=== PATIENT | male | born 1950 | race Caucasian/White ===

== ENCOUNTER 2017-08-23 07:01 | Inpatient (IN) | payer MEDICARE ==
[2017-08-20 14:21] LABS: BASOPHILS % 0.3 % (0.0-1.0); EOSINOPHILS % 0.3 % (0.0-6.0); HEMOGLOBIN 10.6 g/dL (14.0-18.0); LYMPHOCYTES # (AUTO) 1.6 (1.0-3.2); LYMPHOCYTES % 16.3 % (18.0-39.1); MEAN CORPUSCULAR HEMOGLOBIN 30.7 pg (28-32); MEAN CORPUSCULAR HGB CONC 33.1 g/dL (31-35); MEAN CORPUSCULAR VOLUME 92.8 fL (81-99); MONOCYTES # (AUTO) 0.5 (0.2-0.8); MONOCYTES % 5.1 % (4.4-11.3); NEUTROPHILS # (AUTO) 7.4 (2.1-6.9); NEUTROPHILS % 75.9 % (38.7-80.0); PLATELET COUNT 194 x10e3/uL (140-360); RED BLOOD COUNT 3.45 x10e6/uL (4.3-5.7); RED CELL DISTRIBUTION WIDTH 14.9 % (11.7-14.4)
[2017-08-20 14:37] LABS: ANION GAP 17.7 mmol/L (8-16); CALCIUM 9.2 mg/dL (8.4-10.2); CREATININE, SERUM 2.21 mg/dL (0.72-1.25); POTASSIUM 4.7 mmol/L (3.5-5.1)
--- NOTE | 2017-08-20 15:51 | Diagnostic Imaging Report ---
PROCEDURE: Frontal and lateral views of the chest. COMPARISON: None. INDICATIONS: PRE-OPERATIVE CHEST X-RAY FOR LT. KNEE SURGERY. FINDINGS: Lines/tubes: None. Lungs: A lungs are well-inflated. Patchy opacities in the left lower lung/retrocardiac region, likely reflect atelectasis. No consolidation or pulmonary edema. Pleura: There is no pleural effusion or pneumothorax. Heart and mediastinum: The heart and the mediastinum are normal. Bones: No acute bony abnormality. IMPRESSION: 1. left basal atelectatic changes. No consolidation or effusion. Elmo Paz M.D. Dictated by: Elmo Paz M.D. on 08/20/2017 at 15:59 Electronically approved by: Elmo Paz M.D. on 08/20/2017 at 15:59
[2017-08-20 16:16] LABS: LYMPHOCYTES % (MANUAL) 20 % (19-48); MONOCYTES % (MANUAL) 3 % (3.4-9.0); MYELOCYTES % (MANUAL) 1 % (0-0); NEUTROPHILS % (MANUAL) 76 % (40-74); RBC MORPHOLOGY COMMENT NORMAL
[2017-08-20 16:17] LABS: PLATELET ESTIMATE ADEQUATE
[~2017-08-23] VITALS: Ht 175.3 cm; Wt 80.9 kg
[~2017-08-23 07:01] MED LIST: ALLOPURINOL300 MG PO; ASPIRIN325 MG PO; BUMETANIDE1 MG PO; BYSTOLIC10 MG PO; CELEBREX100 MG PO; CLINDAMYCIN HC150 MG PO; COLCRYS0.6 MG PO; DORZOLAMIDE HCL10 ML OP; DORZOLAMIDE-TIM10 ML OP; FOLIC ACID1 MG PO; FUROSEMIDE40 MG PO; HYDRALAZINE HCL25 MG PO; HYDROCODON-ACE1 EA12 PO; LEVOTHYROXINE; LEVOTHYROXINE50 MCG PO; LISINOPRIL2.5 MG PO; METHOTREXATE2.5 MG PO; PREDNISONE10 MG PO; ROPIVACAINE 246.25 MG, EPINEPHRINE HCL 1:1000 0.5 MG, CLONIDINE HCL 0.08 MG, KETOROLAC ... INJ ONE; TRIAMCINOLONE A15 G1
[2017-08-23] MEDS ORDERED: CELECOXIB 200 MG CAP ONE (07:08)
[2017-08-23] MEDS ORDERED: DEXAMETHASONE SOD PHOS 10 MG/1 ML VIAL ONE (07:08)
[2017-08-23] MEDS ORDERED: GABAPENTIN 300 MG CAP ONE (07:08)
[2017-08-23] MEDS: VANCOMYCIN 1GM/NS 250 ML 250 ML ONE ×2 (07:26→09:49)
[2017-08-23 07:40] LABS: ANION GAP 12.6 mmol/L (8-16); CALCIUM 9.1 mg/dL (8.4-10.2); CREATININE, SERUM 2.13 mg/dL (0.72-1.25); POTASSIUM 4.6 mmol/L (3.5-5.1)
[2017-08-23] MEDS ORDERED: HYDRALAZINE HCL 20 MG/ML VIAL ONE (07:48)
[2017-08-23] MEDS ORDERED: TRANEXAMIC ACID 1,000 MG/10 ML ML ONE (09:07)
[2017-08-23] MEDS ORDERED: MUPIROCIN 2% OINT 22 GM TUBE ONE (09:07)
[2017-08-23] MEDS ORDERED: BACITRACIN 50,000 UNIT VIAL ONE (09:08)
[2017-08-23] MEDS ORDERED: HYDROMORPHONE 2MG/ML INJ ONE (09:22)
[2017-08-23] MEDS ORDERED: HYDROCODONE/APAP 7.5MG-325MG 1 EA TAB PO PRN (12:30)
[2017-08-23] MEDS ORDERED: DIPHENHYDRAMINE HCL INJ 50 MG/ML VIAL IM/IV PRN (12:30)
[2017-08-23] MEDS ORDERED: HYDROCODONE/APAP 5MG-325MG TAB PO PRN (12:30)
[2017-08-23] MEDS ORDERED: DOCUSATE SODIUM 100 MG CAP PO PRN (12:30)
[2017-08-23] MEDS ORDERED: PROMETHAZINE HCL (IM) 25 MG/ML VIAL INJ PRN (12:30)
[2017-08-23] MEDS ORDERED: KETOROLAC TROMETHAMINE 30 MG/ML VIAL IV PRN (12:30)
[2017-08-23] MEDS ORDERED: ACETAMINOPHEN 650 MG SUPP PR PRN (12:30)
[2017-08-23] MEDS ORDERED: ZOLPIDEM TARTRATE 5 MG TAB PO PRN (12:30)
[2017-08-23] MEDS ORDERED: ONDANSETRON HCL INJ 2 MG/ML VIAL IV PRN (12:30)
--- NOTE | 2017-08-23 13:39 | Diagnostic Imaging Report ---
PROCEDURE:X-RAY LEFT KNEE, ONE OR TWO VIEWS COMPARISON:05/25/17 INDICATIONS:POST OP LEFT KNEE SURGERY FINDINGS:Status post total left knee arthroplasty with intact prosthesis in adequate anatomic alignment. There is mildpost-operative suprapatellar effusion, soft tissue swelling and gas. Multiple surgical skin luis eduardo. No acute fracture-dislocation. No definite intra-osseous lesion. Vascular calcification. CONCLUSION:Status post total left knee arthroplasty with intact prosthesis in adequate anatomic alignment. Dictated by: Marcos Aly M.D. on 08/23/2017 at 13:48 Electronically approved by: Marcos lAy M.D. on 08/23/2017 at 13:48
[2017-08-23] MEDS ORDERED: CELECOXIB 100 MG CAP PO SCH (17:00)
[2017-08-23] MEDS: ASPIRIN 325 MG TAB PO SCH (17:00)
[2017-08-23] MEDS: ACETAMINOPHEN 1000 MG/100 ML IV SCH (18:00)
[2017-08-23] MEDS ORDERED: SEVOFLURANE INHAL SOLN 250 ML PEN BTL ONE (18:22)
[2017-08-23] MEDS ORDERED: DEXAMETHASONE SOD PHOS INJ 4 MG/ML VIAL ONE (18:22)
[2017-08-23] MEDS ORDERED: ONDANSETRON HCL INJ 2 MG/ML VIAL ONE (18:22)
[2017-08-23] MEDS ORDERED: LIDOCAINE HCL 2% LOCAL INJ 5 ML SDV VIAL INJ ONE (18:22)
[2017-08-23] MEDS ORDERED: PROPOFOL IV EMULSION 10 MG/ML 20 ML VIAL ONE (18:22)
[2017-08-23 18:30] VITALS: BP 126/68
[2017-08-23] MEDS ORDERED: FENTANYL CITRATE/PF 100MCG/2 ML INJ ONE (19:12)
[2017-08-23] MEDS ORDERED: MIDAZOLAM HCL 2 MG/2 ML VIAL ONE (19:12)
[2017-08-23 20:00] VITALS: BP 120/71
[2017-08-23 21:11] VITALS: BP 126/68
[2017-08-23 21:25] VITALS: BP 120/71
[2017-08-23] MEDS: SODIUM CHLORIDE 0.9% 1000ML 1,000 ML IV SCH (22:30)
[2017-08-23] MEDS: VANCOMYCIN 1GM/NS 250 ML 250 ML IV SCH (22:30)
[2017-08-24] VITALS: BP 125/56
[2017-08-24] MEDS: ACETAMINOPHEN 1000 MG/100 ML IV SCH ×3 (00:30→12:00)
[2017-08-24 04:00] VITALS: BP 143/69
[2017-08-24 07:25] LABS: HEMATOCRIT 24.5 % (38.2-49.6); HEMOGLOBIN 7.9 g/dL (14.0-18.0)
[2017-08-24] MEDS: ASPIRIN 325 MG TAB PO SCH ×2 (09:00→17:00)
[2017-08-24] MEDS ORDERED: ASPIRIN325 MG PO (09:03)
[2017-08-24] MEDS: SODIUM CHLORIDE 0.9% 1000ML 1,000 ML IV SCH (09:30)
[2017-08-24 09:56] VITALS: BP 142/64
[2017-08-24] MEDS: VANCOMYCIN 1GM/NS 250 ML 250 ML IV SCH (11:00)
[2017-08-24] MEDS ORDERED: ACETAMINOPHEN 1000 MG/100 ML IV PRN (12:30)
[2017-08-24 14:37] VITALS: BP 136/60
[2017-08-24 17:55] VITALS: BP 113/61
[2017-08-24 20:00] VITALS: BP 139/73
[2017-08-25] VITALS: BP 138/65
[2017-08-25] MEDS ORDERED: SODIUM CHLORIDE 0.9% 250ML 250 ML ONE (02:54)
[2017-08-25 04:00] VITALS: BP 135/73
[2017-08-25 04:40] LABS: HEMATOCRIT 23.9 % (38.2-49.6)
[2017-08-25 04:44] LABS: HEMOGLOBIN 7.8 g/dL (14.0-18.0)
[2017-08-25] MEDS ORDERED: SODIUM CHLORIDE 0.9% 250ML 250 ML IV ONE (04:45)
[2017-08-25 07:30] VITALS: BP 135/73
[2017-08-25] MEDS: ASPIRIN 325 MG TAB PO SCH (07:56)
[2017-08-25 08:02] VITALS: BP 157/81
[2017-08-25 11:34] VITALS: BP 126/70
[2017-08-25] MEDS ORDERED: DOXYCYCLINE HY100 MG PO (13:02)
[2017-08-25 13:35] LABS: BASOPHILS % 0.1 % (0.0-1.0); EOSINOPHILS # (AUTO) 0.1 (0.0-0.4); EOSINOPHILS % 1.1 % (0.0-6.0); HEMATOCRIT 27.6 % (38.2-49.6); HEMOGLOBIN 9.1 g/dL (14.0-18.0); LYMPHOCYTES % 23.8 % (18.0-39.1); MEAN CORPUSCULAR HEMOGLOBIN 30.6 pg (28-32); MEAN CORPUSCULAR VOLUME 92.9 fL (81-99); MONOCYTES # (AUTO) 0.9 (0.2-0.8); MONOCYTES % 10.4 % (4.4-11.3); NEUTROPHILS # (AUTO) 5.4 (2.1-6.9); NEUTROPHILS % 63.5 % (38.7-80.0); PLATELET COUNT 178 x10e3/uL (140-360); RED BLOOD COUNT 2.97 x10e6/uL (4.3-5.7); RED CELL DISTRIBUTION WIDTH 15.6 % (11.7-14.4)
[2017-08-25 13:38] LABS: CALCIUM 8.8 mg/dL (8.4-10.2); CREATININE, SERUM 2.43 mg/dL (0.72-1.25)
[2017-08-25 16:31] VITALS: BP 137/78
--- NOTE | 2017-08-25 18:33 | Operative Report ---
DATE OF PROCEDURE: August 23, 2017 [employer]: Josias Powers PA-C The patient was brought to the operating room for induction of anesthesia. Throughout this case, my PA's assistance was necessary for retraction of soft tissue and positioning of the extremity. This allows for efficient and technically successful execution of the operation and is considered medically necessary. 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 PROCEDURES: 1. Left knee irrigation and debridement. 2. Total synovectomy. 3. Removal of temporary antibiotic prosthesis. 4. Second stage revision of total knee arthroplasty. 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 He has had his prosthesis removed and placement of an antibiotic spacer. Repeat cultures that the aspirate have been negative after a 6 week course of antibiotics. We plan on a 2nd stage revision. The risks and benefits and success rates have all been explained to the patient. He states he understands and wishes to proceed. DESCRIPTION OF PROCEDURE: The patient was brought to the operating room and placed under general anesthetic. He received antibiotics and tranexamic in the holding area. His left lower extremity was prepped and draped in a sterile manner. A preoperative time out was performed. The extremity was exsanguinated and a proximal tourniquet was inflated to 300 mmHg. The previous incision was opened. Slightly blunt blood-tinged synovial fluid was encountered. Cultures were sent. A total synovectomy was performed to improve visualization. Soft tissue releases were performed to bring the knee up into flexion with the patella everted. The previously inserted antibiotic-impregnated prosthesis was carefully removed. This included the femur, tibia and patella. All bone surfaces were gently debrided and cleaned of any fibrous membrane. A [employer] 360 revision system was used. Initial attention was directed towards the tibia. The tibial canal was prepared. This had a rather large 18 mm canal. The tibial baseplate was a 79 mm stem. The central fen punch was impacted. An additional 2 mm cut had been made to freshen up the bone surfaces. Distal femur was templated at 67.5 mm. The canal was also repaired. This had a 19 mm canal. Trial reductions were performed. I elected to use 5 mm medial and lateral augments. A 16 mm posterior stabilized insert provided appropriate soft tissue balancing in flexion and extension. The patella was resurfaced with a size 34 mm patellar button. Patellar tracking was noted to be concentric. The trial implants were then all removed. The knee was thoroughly irrigated with a Pulsavac. A 100 mL premixed pericapsular injection was placed into the soft tissue. The components were cemented into place using two separate mixes of high-viscosity Simplex cement. This was pre-loaded with tobramycin but an additional gram of vancomycin was placed into each mix. The components were cemented into place. Care was taken to remove extravasated cement. The 16 mm tibial insert was seated. The knee was further irrigated and then the arthrotomy was carefully closed with interrupted number 1 Ethibond. The knee was put through flexion and extension after each suture to ensure a secure closure. The skin was closed with subcuticular Vicryl and luis eduardo. A sterile wound vacuum was placed. The patient was extubated and transported to the recovery room in stable condition. Estimated blood loss was approximately 100 mL. All needle and sponge counts were correct. Job#: [id number]
== END 2017-08-25 17:43 | disposition home health service (06) | DRG 467 ==
LOC: OR 07:01 → MED/SURG 12:22
PROVIDERS: ADMIT Specialist; ATTEND Specialist
PROC: 0SRD0J9 Replacement of Left Knee Joint with Synthetic Substitute, Cemented, Open Approach (ICD-10-PCS; 2017-08-23)
PROC: 0SPD0JZ Removal of Synthetic Substitute from Left Knee Joint, Open Approach (ICD-10-PCS; 2017-08-23)
PROC: 0SBD0ZZ Excision of Left Knee Joint, Open Approach (ICD-10-PCS; principal; 2017-08-23 09:52)
PROC: 30233N1 Transfusion of Nonautologous Red Blood Cells into Peripheral Vein, Percutaneous Approach (ICD-10-PCS; 2017-08-25)
DX: T84.54XA Infection and inflammatory reaction due to internal left knee prosthesis, initial encounter (principal); N17.9 Acute kidney failure, unspecified; D62 Acute posthemorrhagic anemia; I10 Essential (primary) hypertension; B96.89 Other specified bacterial agents as the cause of diseases classified elsewhere; M10.9 Gout, unspecified
CPT/HCPCS: 36415; 36430; 71020; 80048; 85014; 85018; 85025; 86850; 86900; 86920; 87071; 87075; 87205; J0171; J0360; J1100; J1885; J2001; J2250; J2405; J2795; J3370; J7030; J7050; P9016

== ENCOUNTER → 2017-09-02 | Outpatient (CLI) | payer MEDICARE ==
[~2017-09-02] MED LIST changes: +DOXYCYCLINE HY100 MG PO; -ROPIVACAINE 246.25 MG, EPINEPHRINE HCL 1:1000 0.5 MG, CLONIDINE HCL 0.08 MG, KETOROLAC ... INJ ONE
--- NOTE | 2017-09-02 15:15 | Diagnostic Imaging Report ---
PROCEDURE:US RETROPERITONEAL ( KIDNEY ). COMPARISON:None. INDICATIONS:Chronic Kidney Disease TECHNIQUE:Ultrasound examination was performed of the kidneys and bladder. FINDINGS: RIGHT KIDNEY:12.3 cm in length. Cyst in the upper pole measures 1.5 x 1.2 x 1.2 cm. Increased echogenicity of the cortex. The cortex measures 1.6 cm in thickness. Cortical scarring. LEFT KIDNEY:12.2 cm in length. Increased echogenicity of the cortex diffusely. Cortical scarring. The cortex measures approximately 1.5 cm in thickness. A cyst in the upper pole measures 4.4 x 4.5 x 5.9 cm. 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 BLADDER:Unremarkable. OTHER:The prostate is normal size measuring 2.0 x 2.2 x 2.9 cm. CONCLUSION: INCREASED ECHOGENICITY OF THE RENAL CORTEX BILATERALLY CONSISTENT WITH MEDICAL RENAL DISEASE. Brandon MOLINA M.D. DICTATED BY: Brandon MOLINA M.D. ON 09/02/2017 AT 15:24 ELECTRONICALLY APPROVED BY: Brandon MOLINA M.D. ON 09/02/2017 AT 15:24
== END ==
LOC: US 10:26
PROVIDERS: ATTEND Family Medicine
DX: N18.4 Chronic kidney disease, stage 4 (severe) (principal)
CPT/HCPCS: 76770

== ENCOUNTER 2018-01-18 06:06 | Inpatient (IN) | payer MEDICARE ==
[2018-01-18] VITALS (7 sets, daily range): BP systolic 116–150; BP diastolic 61–70
[~2018-01-18] VITALS: Ht 175.3 cm; Wt 90.5 kg
--- OUTSIDE RECORDS SUMMARY | 2018-01-18 06:10 | XMS REPORT ---
Author Author [facility] Address Unknown Phone Unavailable Care Team Providers Care Grid Molder Name Role Phone CHINMAY DIAZ Unavailable Unavailable EMMANUEL FLOYD Unavailable Unavailable TRISTAN MONTELONGO Unavailable Unavailable LORE SUTHERLAND Unavailable Unavailable Problems This patient has no known problems. Allergies, Adverse Reactions, Alerts This patient has no known allergies or adverse reactions. Medications This patient has no known medications. Results Test Description Test Time Test Comments Text Results Atomic Results Result Comments CULTURE, BLOOD 2017-01-24 19:47:00 Specimen: BloodCollected: 01/19/2017 13 :40 Status: Final Last Updated: 01/24/2017 19:44 Culture Result ( Final) (Final) No Growth After 5 Days CULTURE, ANAEROBE BLOOD 2017-01-24 19:47:00 Specimen: BloodCollected: 13:40 Status: Final Last Updated: 01/24/2017 19:44 Culture Result (Final) (Final) No Growth After 5 Days URINALYSIS WITH MICROSCOPIC 2017-01-23 19:56:00 Color (test code=UCOLR) Lt. Yellow Clarity (test code=UCLAR) CLEAR Glucose (test code=UGLUC) NEGATIVE NEGATIVE Bilirubin (test code=UBILI) NEGATIVE NEGATIVE Ketones (test code=UKET) NEGATIVE NEGATIVE Specific [place] (test code=USPGR) <=1.005 1.005-1.030 Blood (test code=UBLD) TRACE-INTACT NEGATIVE PH (test code=UPH) 5.5 4.5-8.0 Protein (test code=UPROT) NEGATIVE NEGATIVE Urobilinogen (test code=U UROB) 0.2 >0.2 Nitrite (test code=UNITR) NEGATIVE NEGATIVE Leukocyte Esterase (test code=ULEUK) NEGATIVE NEGATIVE WBC (test code=WBCUR) None Seen 0-5 RBC (test code=RBCUR) 0-5 0-5 Epithial Cells (test code=U EPI) 0-1 0-10 Bacteria (test code=UBACT) Trace None Seen,Trace CBC WITH AUTO [id number] 19:44:00* Test Item Value Reference Range Comments WBC (test code=WBC) 5.4 k/ul 4.8-10.8 RBC (test code=RBC) 4.06 Millions/ul 4.70-6.10 Hemoglobin (test code=HGB) 12.8 gm/dl 14.0-18.0 Hematocrit (test code=HCT) 38.1 % 42.0-50.0 MCV (test code=MCV) 94.0 fL 80.0-94.0 MCH (test code=MCH) 31.4 pg 27.0-31.0 MCHC (test code=MCHC) 33.4 gm/dl 33.0-37.0 RDW (test code=RDWVC) 13.3 % 11.5-14.5 Platelet (test code=PLT) 183 k/ul 130-400 MPV (test code=MPV) 8.0 fL 7.4-10.4 NE% (test code=NE) 60.7 % 42.0-75.0 LY% (test code=LY) 27.4 % 13.0-42.0 MO% (test code=MO) 9.8 % EO% (test code=EO) 1.6 % 1.0-3.0 BA% (test code=BA) 0.5 % 1.0-3.0 NRBC, Auto (test code=NRBC_AUTO) 0 /100WBC 0-0 AUTO [id number] 19:31:00* Test Item Value Reference Range Comments Glucose (test code=GLU) 110 mg/dl 75-110 BUN (test code=BUN) 10.0 mg/dl 6.0-17.0 Creatinine (test code=CREA) 0.8 mg/dl 0.4-1.2 Sodium (test code=NA) 144 mmol/l 137-145 Potassium (test code=K) 4.5 mmol/l 3.5-5.0 Chloride (test code=CL) 103 mmol/l 98-107 CO2 (test code=CO2) 26 mmol/l 22-30 Anion Gap (test code=GAP) 15 Calcium (test code=CALC) 9.5 mg/dl 8.4-10.2 T Protein (test code=TP) 7.7 gm/dl 5.1-8.7 Albumin (test code=ALB) 4.4 gm/dl 3.5-4.6 A/G Ratio (test code=AGRAT) 1.3 % 1.1-2.2 AST (SGOT) (test code=AST) 43 U/L 11-36 ALT (SGPT) (test code=ALT) 27 U/L 11-40 Alkaline Phos (test code=ALKP) 72 U/L 47-114 Total Bilirubin (test code=TBIL) 0.7 mg/dl 0.2-1.2 Globulin (test code=GLOBU) 3.3 gm/dl 2.3-3.5 Calcium, Corrected (test code=CALCCORR) 9.2 mg/dl 8.4-10.2 Various formulas exist for corrected serum calcium results, each yielding different values. This corrected result was based on the formula: Corrected Calcium=SerumCalcium + [0.8 * ( 4 - SerumAlbumin)] EGFR if (test code=EGFRAA) >60 mL/min/1.73m\S\2 EGFR if Non- (test code=EGFRNA) >60 mL/min/1.73m\S\2 Estimated Glomerular Filtration Rate (eGFR) Reference Intervals Decision Points for 18 years and older and average body mass: >=60 Does not exclude kidney disease. 30 - 59 Suggests moderate chronic kidney disease and indicates the need for further investigation including assessment of proteinuria and cardiovascular factors. < 30 Usually indicates a need for referral for assessment and management of chronic kidney failure. [id number] 06:28:00* Test Item Value Reference Range Comments Glucose (test code=GLU) 92 mg/dl 75-110 BUN (test code=BUN) 7.0 mg/dl 6.0-17.0 Creatinine (test code=CREA) 0.8 mg/dl 0.4-1.2 Sodium (test code=NA) 142 mmol/l 137-145 Potassium (test code=K) 3.7 mmol/l 3.5-5.0 Chloride (test code=CL) 108 mmol/l 98-107 CO2 (test code=CO2) 27 mmol/l 22-30 Calcium (test code=CALC) 8.9 mg/dl 8.4-10.2 EGFR if (test code=EGFRAA) >60 mL/min/1.73m\S\2 EGFR if Non- (test code=EGFRNA) >60 mL/min/1.73m\S\2 Estimated Glomerular Filtration Rate (eGFR) Reference Intervals Decision Points for 18 years and older and average body mass: >=60 Does not exclude kidney disease. 30 - 59 Suggests moderate chronic kidney disease and indicates the need for further investigation including assessment of proteinuria and cardiovascular factors. < 30 Usually indicates a need for referral for assessment and management of chronic kidney failure. CBC WITH AUTO [id number] 05:53:00* Test Item Value Reference Range Comments WBC (test code=WBC) 4.6 k/ul 4.8-10.8 RBC (test code=RBC) 3.51 Millions/ul 4.70-6.10 Hemoglobin (test code=HGB) 11.3 gm/dl 14.0-18.0 Hematocrit (test code=HCT) 33.4 % 42.0-50.0 MCV (test code=MCV) 95.0 fL 80.0-94.0 MCH (test code=MCH) 32.2 pg 27.0-31.0 MCHC (test code=MCHC) 33.9 gm/dl 33.0-37.0 RDW (test code=RDWVC) 13.4 % 11.5-14.5 Platelet (test code=PLT) 150 k/ul 130-400 MPV (test code=MPV) 8.6 fL 7.4-10.4 NE% (test code=NE) 53.8 % 42.0-75.0 LY% (test code=LY) 28.3 % 13.0-42.0 MO% (test code=MO) 14.2 % EO% (test code=EO) 3.3 % 1.0-3.0 BA% (test code=BA) 0.4 % 1.0-3.0 NRBC, Auto (test code=NRBC_AUTO) 0 /100WBC 0-0 B12, [id number] 15:14:00* Test Item Value Reference Range Comments B12 (test code=B12) 249 pg/ml 239-941 TSH (Ultra Sensitive)2017-01-20 15:14:00* Test Item Value Reference Range Comments TSH (test code=TSH) 1.98 mIU/L 0.47-4.68 [id number] 09:21:00* Test Item Value Reference Range Comments CKMB (test code=CKMB) 0.73 ng/ml 0.00-2.36 [id number] 09:21:00* Test Item Value Reference Range Comments CPK (test code=CPK) 85 U/L 30-135 TROPONIN-I [id number] 09:21:00* Test Item Value Reference Range Comments Troponin-I (test code=TROP) 0.012 ng/ml 0.000-0.034 The 99th Percentile URL is 0.034 ng/mL. The Joint Society of Cardiology/[place] [employer] (ESC/ACC) and the National Academy of Clinical Biochemistry Standards of Laboratory Practices (NACB) recommends that the diagnosis of AMI includes the presence of clinical history suggestive of Acute Coronary Syndrome (ACS) and a maximum concentration of cardiac troponin exceeding the 99th percentile of a normal reference population [upper reference limit (URL)] on at least one occasion during the first 24 hours after the clinical event. TROPONIN-I [id number] 07:59:00* Test Item Value Reference Range Comments Troponin-I (test code=TROP) 0.012 ng/ml 0.000-0.034 The 99th Percentile URL is 0.034 ng/mL. The Joint Society of Cardiology/[place] [employer] (ESC/ACC) and the National Academy of Clinical Biochemistry Standards of Laboratory Practices (NACB) recommends that the diagnosis of AMI includes the presence of clinical history suggestive of Acute Coronary Syndrome (ACS) and a maximum concentration of cardiac troponin exceeding the 99th percentile of a normal reference population [upper reference limit (URL)] on at least one occasion during the first 24 hours after the clinical event. [id number] 07:59:00* Test Item Value Reference Range Comments CKMB (test code=CKMB) 0.62 ng/ml 0.00-2.36 [id number] 07:03:00* Test Item Value Reference Range Comments Glucose (test code=GLU) 85 mg/dl 75-110 BUN (test code=BUN) 12.0 mg/dl 6.0-17.0 Creatinine (test code=CREA) 0.8 mg/dl 0.4-1.2 Sodium (test code=NA) 142 mmol/l 137-145 Potassium (test code=K) 3.7 mmol/l 3.5-5.0 Chloride (test code=CL) 107 mmol/l 98-107 CO2 (test code=CO2) 28 mmol/l 22-30 Calcium (test code=CALC) 8.9 mg/dl 8.4-10.2 EGFR if (test code=EGFRAA) >60 mL/min/1.73m\S\2 EGFR if Non- (test code=EGFRNA) >60 mL/min/1.73m\S\2 Estimated Glomerular Filtration Rate (eGFR) Reference Intervals Decision Points for 18 years and older and average body mass: >=60 Does not exclude kidney disease. 30 - 59 Suggests moderate chronic kidney disease and indicates the need for further investigation including assessment of proteinuria and cardiovascular factors. < 30 Usually indicates a need for referral for assessment and management of chronic kidney failure. CBC WITH AUTO [id number] 06:38:00* Test Item Value Reference Range Comments WBC (test code=WBC) 4.8 k/ul 4.8-10.8 RBC (test code=RBC) 3.72 Millions/ul 4.70-6.10 Hemoglobin (test code=HGB) 12.0 gm/dl 14.0-18.0 Hematocrit (test code=HCT) 35.5 % 42.0-50.0 MCV (test code=MCV) 95.5 fL 80.0-94.0 MCH (test code=MCH) 32.2 pg 27.0-31.0 MCHC (test code=MCHC) 33.7 gm/dl 33.0-37.0 RDW (test code=RDWVC) 13.4 % 11.5-14.5 Platelet (test code=PLT) 184 k/ul 130-400 MPV (test code=MPV) 8.5 fL 7.4-10.4 NE% (test code=NE) 48.8 % 42.0-75.0 LY% (test code=LY) 34.6 % 13.0-42.0 MO% (test code=MO) 13.5 % EO% (test code=EO) 2.5 % 1.0-3.0 BA% (test code=BA) 0.6 % 1.0-3.0 NRBC, Auto (test code=NRBC_AUTO) 0 /100WBC 0-0 [id number] 00:41:00* Test Item Value Reference Range Comments CKMB (test code=CKMB) 0.80 ng/ml 0.00-2.37 TROPONIN-I [id number] 00:41:00* Test Item Value Reference Range Comments Troponin-I (test code=TROP) 0.012 ng/ml 0.000-0.034 The 99th Percentile URL is 0.034 ng/mL. The Joint Society of Cardiology/[place] [employer] (ESC/ACC) and the National Academy of Clinical Biochemistry Standards of Laboratory Practices (NACB) recommends that the diagnosis of AMI includes the presence of clinical history suggestive of Acute Coronary Syndrome (ACS) and a maximum concentration of cardiac troponin exceeding the 99th percentile of a normal reference population [upper reference limit (URL)] on at least one occasion during the first 24 hours after the clinical event. TROPONIN-I [id number] 18:12:00* Test Item Value Reference Range Comments Troponin-I (test code=TROP) 0.012 ng/ml 0.000-0.034 The 99th Percentile URL is 0.034 ng/mL. The Joint Society of Cardiology/[place] [employer] (ESC/ACC) and the National Academy of Clinical Biochemistry Standards of Laboratory Practices (NACB) recommends that the diagnosis of AMI includes the presence of clinical history suggestive of Acute Coronary Syndrome (ACS) and a maximum concentration of cardiac troponin exceeding the 99th percentile of a normal reference population [upper reference limit (URL)] on at least one occasion during the first 24 hours after the clinical event. [id number] 18:12:00* Test Item Value Reference Range Comments CKMB (test code=CKMB) 0.68 ng/ml 0.00-2.37 DRUG SCREEN [id number] 15:26:00* Test Item Value Reference Range Comments PH (test code=UPH) 6.0 Specific [place] (test code=USPGR) 1.010 FT (test code=AMPHET) Negative (qualifier value) FT (test code=GREGORY) Negative (qualifier value) FT (test code=BENZO) Negative (qualifier value) FT (test code=MERCED) Negative (qualifier value) FT (test code=MTD) Negative (qualifier value) FT (test code=OPIAT) Negative (qualifier value) FT (test code=PCP) Negative (qualifier value) The following table provides an interpretive guide for the Drugs of Abuse ran on the [employer] 5.1 analyzer listed there in: Amphetamines < 1000 ng/ml=Negative Barbituates < 200 ng/ml=Negative Benzodiazapines < 200 ngml=Negative Cocaine < 300 ng/ml=Negative Methadone < 300 ng/ml= Negative Opiate < 300 ng/ml=Negative PCP < 25 ng /ml=Negative THC < 50 ng/ml=Negative Results equal to or greater than the above cut-off values=Presumptive Positive. Confirmation of Presumptive Positive results are available upon request. FT (test code=THC) Negative (qualifier value) URINALYSIS WITH [id number] 15:09:00* Test Item Value Reference Range Comments Color (test code=UCOLR) Lt. Yellow Clarity (test code=UCLAR) CLEAR Glucose (test code=UGLUC) NEGATIVE NEGATIVE Bilirubin (test code=UBILI) SMALL NEGATIVE Ketones (test code=UKET) NEGATIVE NEGATIVE Specific [place] (test code=USPGR) 1.010 1.005-1.030 Blood (test code=UBLD) NEGATIVE NEGATIVE PH (test code=UPH) 6.0 4.5-8.0 Protein (test code=UPROT) NEGATIVE NEGATIVE Urobilinogen (test code=U UROB) 0.2 >0.2 Nitrite (test code=UNITR) NEGATIVE NEGATIVE Leukocyte Esterase (test code=ULEUK) NEGATIVE NEGATIVE WBC (test code=WBCUR) None Seen 0-5 RBC (test code=RBCUR) None Seen 0-5 Epithial Cells (test code=U EPI) 0-3 0-10 Mucous (test code=UMUC) Trace None Seen Bacteria (test code=UBACT) None Seen None Seen,Trace TROPONIN-I [id number] 14:20:00* Test Item Value Reference Range Comments Troponin-I (test code=TROP) 0.012 ng/ml 0.000-0.034 The 99th Percentile URL is 0.034 ng/mL. The Joint Society of Cardiology/[place] [employer]iology (ESC/ACC) and the National Academy of Clinical Biochemistry Standards of Laboratory Practices (NACB) recommends that the diagnosis of AMI includes the presence of clinical history suggestive of Acute Coronary Syndrome (ACS) and a maximum concentration of cardiac troponin exceeding the 99th percentile of a normal reference population [upper reference limit (URL)] on at least one occasion during the first 24 hours after the clinical event. [id number] 14:20:00* Test Item Value Reference Range Comments CPK (test code=CPK) 74 U/L 30-135 [id number] 14:18:00* Test Item Value Reference Range Comments Glucose (test code=GLU) 101 mg/dl 75-110 BUN (test code=BUN) 14.0 mg/dl 6.0-17.0 Creatinine (test code=CREA) 0.9 mg/dl 0.4-1.2 Sodium (test code=NA) 146 mmol/l 137-145 Potassium (test code=K) 4.1 mmol/l 3.5-5.0 Chloride (test code=CL) 98 mmol/l 98-107 CO2 (test code=CO2) 29 mmol/l 22-30 Anion Gap (test code=GAP) 18 Calcium (test code=CALC) 8.3 mg/dl 8.4-10.2 T Protein (test code=TP) 7.3 gm/dl 5.1-8.7 Albumin (test code=ALB) 4.4 gm/dl 3.5-4.6 A/G Ratio (test code=AGRAT) 1.5 % 1.1-2.2 AST (SGOT) (test code=AST) 29 U/L 11-36 ALT (SGPT) (test code=ALT) 27 U/L 11-40 Alkaline Phos (test code=ALKP) 86 U/L 47-114 Total Bilirubin (test code=TBIL) 0.9 mg/dl 0.2-1.2 Globulin (test code=GLOBU) 2.9 gm/dl 2.3-3.5 Calcium, Corrected (test code=CALCCORR) 8.0 mg/dl 8.4-10.2 Various formulas exist for corrected serum calcium results, each yielding different values. This corrected result was based on the formula: Corrected Calcium=SerumCalcium + [0.8 * ( 4 - SerumAlbumin)] EGFR if (test code=EGFRAA) >60 mL/min/1.73m\S\2 EGFR if Non- (test code=EGFRNA) >60 mL/min/1.73m\S\2 Estimated Glomerular Filtration Rate (eGFR) Reference Intervals Decision Points for 18 years and older and average body mass: >=60 Does not exclude kidney disease. 30 - 59 Suggests moderate chronic kidney disease and indicates the need for further investigation including assessment of proteinuria and cardiovascular factors. < 30 Usually indicates a need for referral for assessment and management of chronic kidney failure. CBC WITH AUTO [id number] 13:46:00* Test Item Value Reference Range Comments WBC (test code=WBC) 6.5 k/ul 4.8-10.8 RBC (test code=RBC) 4.23 Millions/ul 4.70-6.10 Hemoglobin (test code=HGB) 13.5 gm/dl 14.0-18.0 Hematocrit (test code=HCT) 40.1 % 42.0-50.0 MCV (test code=MCV) 94.7 fL 80.0-94.0 MCH (test code=MCH) 32.0 pg 27.0-31.0 MCHC (test code=MCHC) 33.8 gm/dl 33.0-37.0 RDW (test code=RDWVC) 13.2 % 11.5-14.5 Platelet (test code=PLT) 219 k/ul 130-400 MPV (test code=MPV) 8.3 fL 7.4-10.4 NE% (test code=NE) 66.0 % 42.0-75.0 LY% (test code=LY) 24.2 % 13.0-42.0 MO% (test code=MO) 9.0 % EO% (test code=EO) 0.5 % 1.0-3.0 BA% (test code=BA) 0.3 % 1.0-3.0 NRBC, Auto (test code=NRBC_AUTO) 0 /100WBC 0-0 US RENAL RETROPERITONEAL COMP [place] [id number] Patient Name: ZEE CRUZ MR #: [id number] : 1950 Age/Sex: 67/M Req #: [id number] [facility] Physician: Ordered by: CHINMAY DIAZ MD Report #: [id number] Location: Room/Bed: Procedure: [id number] US/US RENAL RETROPERITONEAL COMP Exam Date: 09/02/17 Exam Time: 1100 REPORT STATUS: Signed PROCEDURE : US RETROPERITONEAL ( KIDNEY ). COMPARISON: None. INDICATIONS: Chronic Kidney Disease TECHNIQUE: Ultrasound examination was performed of the kidneys and bladder. FINDINGS: RIGHT KIDNEY: 12.3 cm in length. Cyst in the upper pole measures 1.5 x 1.2 x 1.2 cm. Increased echogenicity of the cortex. The cortex measures 1.6 cm in thickness. Cortical scarring. LEFT KIDNEY: 12.2 cm in length. Increased echogenicity of the cortex diffusely. Cortical scarring. The cortex measures approximately 1.5 cm in thickness. A cyst in the upper pole measures 4.4 x 4.5 x 5.9 cm. 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 BLADDER: Unremarkable. OTHER: The prostate is normal size measuring 2.0 x 2.2 x 2.9 cm. CONCLUSION: INCREASED ECHOGENICITY OF THE RENAL CORTEX BILATERALLY CONSISTENT WITH MEDICAL RENAL DISEASE. Brandon MOLINA M.D. DICTATED BY: Brandon MOLINA M.D. ON 09/02/2017 AT 15: 24 ELECTRONICALLY APPROVED BY: Brandon MOLINA M.D. ON 09/02/2017 AT 15:24 Dictated By: ANNIE MOLINA MD, MD 1524 Transcribed By: JOSE ALEJANDRO on 09/02 1524 COPY TO: CHINMAY DIAZ MD KNEE LEFT 1-2 VIEWS [place] [address] Patient Name: ZEE CRUZ MR #: [id number] : Age/Sex: 67/M Req #: [id number] Adm Physician: Ordered by: EMMANUEL FLOYD MD Report #: [id number] Location: OR Room/Bed: Procedure: [id number] DX/KNEE LEFT 1-2 VIEWS Exam Date: 08/23/17 Exam Time: 1230 REPORT STATUS: Signed PROCEDURE: X-RAY LEFT KNEE, ONE OR TWO VIEWS COMPARISON: INDICATIONS: POST OP LEFT KNEE SURGERY FINDINGS: Status post total left knee arthroplasty with intact prosthesis in adequate anatomic alignment. There is mildpost-operative suprapatellar effusion, soft tissue swelling and gas. Multiple surgical skin luis eduardo. No acute fracture-dislocation. No definite intra-osseous lesion. Vascular calcification. CONCLUSION: Status post total left knee arthroplasty with intact prosthesis in adequate anatomic alignment. Dictated by: Marcos Rivera M.D. on 08/23/2017 at 13:48 Electronically approved by: Marcos Rivera M.D. on 08/23/2017 at 13:48 Dictated By: MARCOS RIVERA MD 1348 Transcribed By: JOSE ALEJANDRO on 08/23/17 1348 COPY TO: EMMANUEL FLOYD MD CHEST 2 VIEWS [place] [address] Patient Name: ZEE CRUZ MR # : [id number] : 1950 Age/Sex: 67/M Req #: [id number] Adm Physician: Ordered by: STEFANO LANDRY MD Report #: [id number] Location: OR Room/Bed: Procedure: [id number] DX/ CHEST 2 VIEWS Exam Date: 08/20/17 Exam Time: 1428 REPORT STATUS: Signed PROCEDURE: Frontal and lateral views of the chest. COMPARISON: None. INDICATIONS: PRE-OPERATIVE CHEST X-RAY FOR LT. KNEE SURGERY. FINDINGS: Lines/tubes: None. Lungs: A lungs are well-inflated. Patchy opacities in the left lower lung/ retrocardiac region, likely reflect atelectasis. No consolidation or pulmonary edema. Pleura: There is no pleural effusion or pneumothorax. Heart and mediastinum: The heart and the mediastinum are normal. Bones: No acute bony abnormality. IMPRESSION: 1. left basal atelectatic changes. No consolidation or effusion. Elmo Padilla M.D. Dictated by: Elmo Padilla M.D. on 08/20/2017 at 15:59 Electronically approved by: Elmo Padilla M.D. on 08/20/2017 at 15:59 Dictated By: ELMO PADILLA MD 58 Transcribed By: JOSE ALEJANDRO on 08/20/171558 COPY TO: STEFANO LANDRY MD LEFT 1-2 VIEWS [place] [address] Patient Name: ZEE CRUZ MR #: [id number] : 1950 Age/Sex: 67/M Req #: [id number] Adm Physician: CHINMAY DIAZ MD Ordered by: EMMANUEL FLOYD MD Report #: [id number] Location: MED/SURG2 Room/ Bed: 209-1 Procedure: [id number] DX/KNEE LEFT 1-2 VIEWS Exam Date: 05/25/17 Exam Time: 1325 REPORT STATUS: Signed PROCEDURE: X-RAY LEFT KNEE, ONE OR TWO VIEWS COMPARISON: None. INDICATIONS: POST KNEE SURGERY FINDINGS: Status post total left knee arthroplasty with intact prosthesis in adequate anatomic alignment. There is post-operative suprapatellar effusion, soft tissue swelling and gas. Overlying surgical drain. Multiple surgical skin luis eduardo. No acute fracture-dislocation. No definite intra-osseous lesion. CONCLUSION: Status post total left knee arthroplasty with intact prosthesis in adequate anatomic alignment. Dictated by: Leonard Pritchard M.D. on 05/25/2017 at 14:33 Electronically approved by: Leonard Pritchard M.D. on at 14:33 Dictated By: LEONARD PRITCHARD MD 1433 Transcribed By: JOSE ALEJANDRO on 05/25/17 1433 COPY TO: EMMANUEL FLOYD MD CHEST XRAY LINE PLACEMENT [place] [address] Patient Name: ZEE CRUZ MR #: [id number] : 1949 Age/Sex: 67/M Req #: [id number] Adm Physician: CHINMAY DIAZ MD Ordered by: CHINMAY DIAZ MD Report #: [id number] Location: MED/SURG2 Room/Bed: 209- Procedure: [id number] DX/ CHEST XRAY LINE PLACEMENT Exam Date: 05/20/17 Exam Time: 1450 REPORT STATUS: Signed PROCEDURE: A single AP view of the chest. COMPARISON: [facility], CT, CT CHEST W, 03/30/2017, 20: 52. INDICATIONS: POST RIGHT SIDED PICC LINE PLACEMENT FINDINGS : See impression. IMPRESSION: 1. right-sided PICC line has distal tip projecting in the mid SVC. 2. Left basilar atelectatic changes. 3. Linear opacities in the left mid to lower lung likely reflects subsegmental atelectasis. 4. Enlarged cardiac silhouette. Pulmonary vasculature is normal. Elmo Padilla M.D. Dictated by : Elmo Padilla M.D. on 05/20/2017 at 15:36 Electronically approved by: Elmo Padilla M.D. on 05/20/2017 at 15:36 Dictated By: ELMO PADILLA MD 35 Transcribed By: JOSE ALEJANDRO on 05/20/17 153 COPY TO: CHINMAY DIAZ MD KNEE LEFT THREE VIEWS [place] [address] Patient Name: ZEE CRUZ MR #: [id number] : 1950 Age/Sex: 67/M Req #: [id number] [facility] Physician: Ordered by: DENISE MOORE MD Report #: [id number] Location: ER Room/Bed: Procedure: [id number] DX/KNEE LEFT THREE VIEWS Exam Date: 05/19/17 Exam Time: 0140 REPORT STATUS: Signed KNEE LEFT THREE VIEWS Comparison: None Clinical history: Swelling, septic arthritis Findings: Postsurgical changes status post total left knee arthroplasty. Moderate partially imaged suprapatellar joint effusion and soft tissue swelling. No bony destruction or hardware loosening seen. Vascular calcifications. Impression: Moderate suprapatellar joint effusion and soft tissue swelling. Postsurgical changes status post total left knee arthroplasty without hardware failure. Signed by: Dr Dariana Aquino MD on 05/19/2017 2:22 AM Dictated By: DARIANA AQUINO MD 1 Transcribed By: JODY on 05/19 COPY TO: DENISE MOORE MD CT ABDOMEN/PELVIS WO [place] [address] Patient Name: ZEE CRUZ MR #: [id number] : Age/Sex: 66/M Req #: [id number] [facility] Physician: CHINMAY DIAZ MD Ordered by: ENA VARGAS, KARY VARGAS Report #: [id number] Location: [facility] Room/Bed: [facility] Procedure: [id number] CT/CT ABDOMEN/PELVIS WO Exam Date: 04/06/17 Exam Time: 1230 REPORT STATUS: Signed PROCEDURE: CT ABDOMEN AND PELVIS WITHOUT CONTRAST TECHNIQUE: The abdomen and pelvis were scanned utilizing a multidetector helical scanner from the diaphragm to the lesser trochanter after the oral administration of water. No IV contrast was administered per physician's request. Coronal and sagittal multiplanar reformations were obtained. COMPARISON: [facility], US, US ABDOMEN COMPLETE, 04/01/2017, 12:10. INDICATIONS: HX OF KIDNEYS STONES AND CYST FINDINGS: ABSENCE OF INTRAVENOUS CONTRAST DECREASES SENSITIVITY FOR DETECTION OF FOCAL LESIONS AND VASCULAR PATHOLOGY. LOWER THORAX: Trace bilateral pleural effusions and associated bibasilar atelectasis. Mild cardiomegaly. Trace pericardial effusion. Atherosclerotic calcification of the aortic valve, coronary arteries and thoracic aorta. HEPATOBILIARY: No focal hepatic lesions. No biliary ductal dilatation. Gallbladder is unremarkable. SPLEEN: No splenomegaly. PANCREAS: No focal masses or ductal dilatation. ADRENALS: No adrenal nodules. KIDNEYS/ URETERS:2-3 mm nonobstructing calculus in the left inferior pole (series 3, image 90). Punctate, nonobstructing calculus in the superior left pole ( coronal image 46). No other renal or any ureteral or bladder calculi. No hydronephrosis or obstruction. 4.3 x 3.9 x 4.2 cm lobulated fluid density, mostly exophytic cystic lesion in the lateral interpolar region of the left kidney, corresponding to the cystic lesion noted on recent ultrasound. Punctate wall calcifications in the lateral posterior aspect of the cyst ( for example series 3, image 78 and coronal image 72). No other renal contour abnormalities. Mild bilateral perinephric stranding. PELVIC ORGANS/ BLADDER: Decompressed, with Soto catheter in place. Prostate is unremarkable. PERITONEUM / RETROPERITONEUM: No free air or fluid. LYMPH NODES: No lymphadenopathy. VESSELS: Atherosclerotic calcification of the abdominal aorta and iliac vessels. GI TRACT: No bowel dilation or evidence of obstruction. BONES AND SOFT TISSUES: No acute bony abnormalities. Generalized osteopenia. Mild generalized soft tissue edema. IMPRESSION: 1. 2-3 mm nonobstructing calculus in the left inferior pole. 2. Punctate nonobstructing calculus in the superior left pole. 3. No other renal or any ureteral or bladder calculi. No hydronephrosis or obstruction. 4. 4.3 cm lobulated, minimally complex cystic lesion in the lateral interpolar region of the left kidney. 5. Preliminary report provided by Dr. Padilla April 06, 2017 at 1343 hour Elmo Padilla M.D. Dictated by: Elmo Padilla M.D. on 04/07/2017 at 17:34 Electronically approved by: Elmo Padilla M.D. on 04/07/2017 at 17 :34 Dictated By: ELMO PADILLA MD 33 Transcribed By: JOSE ALEJANDRO on 04/07/171733 COPY TO: KARY SUTHERLAND US ABDOMEN COMPLETE [place] [address] Patient Name: ZEE CRUZ MR #: [id number] : 1950 Age/Sex: 66/M Req #: [id number] [facility] Physician: CHINMAY DIAZ MD Ordered by: BRENDA CARDONA MD Report #: [id number] Location: [facility] Room/Bed: [facility] Procedure: [id number] US/US ABDOMEN COMPLETE Exam Date: 04/01/17 Exam Time: 1210 REPORT STATUS: Signed PROCEDURE: ABDOMINAL ULTRASOUND COMPARISON: None. INDICATIONS: INCREASED ABDOMINAL GIRTH, HYPOALBUMINEMIA, LIVER CIRRHOSIS FINDINGS: Liver: 18 cm in length in the right midclavicular line. Normal hepatic parenchymal echogenicity. Normal hepatic parenchymal echogenicity. No focal mass. Main portal vein: 0.8 cm in caliber. Hepatopedal flow. Gallbladder: No wall thickening, pericholecystic fluid, or calculi Common Bile Duct: 0.3 cm in caliber. No echogenic filling defect. Sonographic Dawson's sign: Reported as negative. Right kidney: 12.3 cm in length. No solid mass, or hydronephrosis. Small renal cysts as seen on comparison CT 03/30/2017. Nonobstructing echogenic calculus in the lower pole. Increased renal cortical echogenicity. Left kidney: 11.5 cm in length. No solid mass, echogenic calculi, or hydronephrosis. Increased renal cortical echogenicity. Exophytic cyst as seen on comparison CT 03/30/2017. Spleen: 13.9 cm in length, mildly enlarged. Informed parenchymal echotexture. Pancreas: The visualized portions of the pancreas are normal. Inferior vena cava: Patent. Aorta: Non-aneurysmal. Ascites: None. Incidental trace bilateral pleural effusions. CONCLUSION: Hepatomegaly and splenomegaly without focal mass. Bilateral renal cysts. Nonobstructing right renal calculus. Increased renal cortical echogenicity suggestive of medical renal disease. Dictated by: Emmanuel Meza M.D. on 04/01/2017 at 14:07 Electronically approved by: Emmanuel Meza M.D. on 04/01/2017 at 14 :07 Dictated By: EMMANUEL MEZA MD 1407 Transcribed By: JOSE ALEJANDRO on 04/01/17 1407 COPY TO: BRENDA CARDONA MD KNEE LEFT THREE VIEWS [place] [address] Patient Name: ZEE CRUZ MR #: [id number] : 1949 Age/Sex: 66/M Req #: [id number] Adm Physician: CHINMAY DIAZ MD Ordered by: BRENDA CARDONA MD Report #: [id number] Location : MED/SURG3 Room/Bed: [facility] Procedure: [id number] DX/ KNEE LEFT THREE VIEWS Exam Date: 03/31/17 Exam Time : 1806 REPORT STATUS: Signed PROCEDURE: X-RAY LEFT KNEE, THREE OR MORE VIEWS COMPARISON: [facility], DX, KNEE LEFT 1-2 VIEWS , 11/09/2016, 9:57. INDICATIONS: KNEE SWELLING, STAPH INFECTION FINDINGS: The bones are well-mineralized. Left total knee replacement is identified, with intact hardware. No evidence of loosening or fracture. No acute displaced fracture or dislocation. No lytic or blastic lesions. Moderate suprapatellar effusion and soft tissue swelling anterior to the distal femur . CONCLUSION: Moderate suprapatellar effusion and soft tissue swelling anterior to distal femur. Status post total knee replacement with intact hardware. Elmo Padilla M.D. Dictated by: Elmo Padilla M.D. on 03/31/2017 at 19:44 Electronically approved by: Elmo Padilla M.D. on 03/31/2017 at 19:44 Dictated By: ELMO PADILLA MD 43 Transcribed By: JOSE ALEJANDRO on 03/31/171943 COPY TO: BRENDA CARDONA MD CT CHEST W [place] [address] Patient Name: ZEE CRUZ MR #: [id number] : 1950 Age/Sex: 66/M Req #: [id number] Adm Physician: Ordered by: DENISE MOORE MD Report #: [id number] Location: ER Room/Bed: Procedure: [id number] CT/CT CHEST W Exam Date: 03/30/17 Exam Time: 2100 REPORT STATUS: Signed EXAM: CT CHEST W DATE: 03/30 8:14 PM Time stamp on exam: 2053 hours INDICATION: History of blood clots, elevated d-dimer COMPARISON: None TECHNIQUE: Multidetector CT scanning of the chest was performed. Coronal and sagittal multiplanar reformations were obtained. PE protocol performed. IV Contrast: 100 cc Isovue- 370 CTDIvol has been reviewed. It is below the limits set by the Radiation Protocol Committee (RPC). FINDINGS: Exam limited by low inspiration and motion artifact. LUNGS AND AIRWAYS: The trachea and major bronchi are unremarkable. Mild septal thickening, vascular congestion and ground glass opacities. Bibasilar atelectasis. PLEURA: Trace layering bilateral pleural effusions. HEART, MEDIASTINUM, VESSELS: Mild cardiomegaly. Trace pericardial effusion. Atherosclerotic changes of the thoracic aorta without aneurysm. No mediastinal mass or lymphadenopathy. The main pulmonary artery is within normal size limits. No evidence of a pulmonary embolism to the segmental level. UPPER ABDOMEN: Partially visualized 4 cm left renal cyst. MUSCULOSKELETAL: Mild subcutaneous edema. Multiple old/healing bilateral rib fractures. IMPRESSION: 1. No evidence of a pulmonary embolism. 2. Findings of mild fluid overload. Signed by: Dr. Aleyda Andrade M.D. on 03/30/2017 9:36 PM Dictated By: ALEYDA ANDRADE MD 35 Transcribed By : JODY on 03/30/172135 COPY TO: DENISE MOORE MD CHEST 2 VIEWS [place] [address] Patient Name: ZEE CRUZ MR #: [id number] : 1950 Age/Sex: 66/M Req #: [id number] Adm Physician: Ordered by: LORNA RAMESH MD Report #: [id number] Location: ER Room/Bed: Procedure: [id number] DX/CHEST 2 VIEWS Exam Date: Exam Time: REPORT STATUS: Signed PROCEDURE: Frontal and lateral views of the chest. COMPARISON: Patients [facility], DX, CHEST SINGLE (PORTABLE), 01/25/2017, 20:26. INDICATIONS: COUGH, FEVER, STAFF INFECTION FINDINGS: Lines/tubes : None. Lungs: Patchy density in the left lung base may represent atelectasis versus developing pneumonia proper clinical setting. Patchy density in the right lower lobe may represent atelectasis; the morphology isn 't particularly suggestive of consolidation. Mild prominence of the pulmonary vasculature bilaterally. Pleura: There is no pneumothorax. Bilateral small pleural effusions. Heart and mediastinum: The cardiac silhouette is not enlarged. Bones: No acute bony abnormality. IMPRESSION: 1. Findings suggestive of bibasilar atelectasis, however, cannot exclude developing pneumonia/infection in the proper clinical setting. 2. Mild pulmonary venous congestion. Brandon Molina M.D. Dictated by: Brandon Molina M.D. on 03/30/2017 at 17: 45 Electronically approved by: Brandon Molina M.D. on 03/30/2017 at 17:45 Dictated By: ANNIE MOLINA MD, MD 44 Transcribed By: JOSE ALEJANDRO on 03/30 COPY TO: LORNA RAMESH MD
[2018-01-18] MEDS ORDERED: SODIUM CHLORIDE 0.9% 250ML 250 ML IV ONE (06:30)
[2018-01-18] MEDS ORDERED: CEFAZOLIN SOD 2 GM/D5W 50ML 50 ML IV ONE (06:32)
[2018-01-18] MEDS ORDERED: GABAPENTIN 300 MG CAP ONE (06:32)
[2018-01-18] MEDS ORDERED: CELECOXIB 200 MG CAP ONE (06:32)
[2018-01-18] MEDS ORDERED: DEXAMETHASONE SOD PHOS 10 MG/1 ML VIAL ONE (06:32)
[2018-01-18] MEDS ORDERED: MUPIROCIN 2% OINT 22 GM TUBE ONE (06:55)
[2018-01-18] MEDS ORDERED: TRANEXAMIC ACID 1,000 MG/10 ML ML ONE (06:55)
[2018-01-18] MEDS ORDERED: BACITRACIN 50,000 UNIT VIAL ONE (06:56)
[2018-01-18] MEDS ORDERED: ROPIVACAINE 246.25 MG, EPINEPHRINE HCL 1:1000 0.5 MG, CLONIDINE HCL 0.08 MG, KETOROLAC ... INJ ONE ×5 (08:00)
[2018-01-18] MEDS: SODIUM CHLORIDE 0.9% 1000ML 1,000 ML IV SCH ×2 (09:19→19:19)
[2018-01-18] MEDS ORDERED: DIPHENHYDRAMINE HCL INJ 50 MG/ML VIAL IM/IV PRN (09:30)
[2018-01-18] MEDS ORDERED: PROMETHAZINE HCL (IM) 25 MG/ML VIAL IM PRN (09:30)
[2018-01-18] MEDS ORDERED: ACETAMINOPHEN 650 MG SUPP PR PRN (09:30)
[2018-01-18] MEDS ORDERED: ONDANSETRON HCL INJ 2 MG/ML VIAL IV PRN (09:30)
[2018-01-18] MEDS ORDERED: HYDROCODONE/APAP 7.5MG-325MG 1 EA TAB PO PRN (09:30)
[2018-01-18] MEDS ORDERED: DOCUSATE SODIUM 100 MG CAP PO PRN (09:30)
[2018-01-18] MEDS ORDERED: HYDROCODONE/APAP 5MG-325MG TAB PO PRN (09:30)
--- NOTE | 2018-01-18 11:19 | Operative Report ---
DATE OF PROCEDURE: January 18, 2018 SANITARY AIDE: Josias Powers PA-C The patient was brought to the operating room for induction of anesthesia. Throughout this case, my PA's assistance was necessary for retraction of soft tissue and positioning of the extremity. This allows for efficient and technically successful execution of the operation and is considered medically necessary. PREOPERATIVE DIAGNOSIS: Mechanical complications in left total knee arthroplasty. POSTOPERATIVE DIAGNOSIS: Mechanical complications in left total knee arthroplasty. PROCEDURE: Left knee lateral retinacular release with vastus medialis obliquus advancement. INDICATIONS: The patient is a 67-year-old gentleman who has rheumatoid arthritis and is on chronic steroids. 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 He underwent a 2-stage revision and was doing just fine. However, he has developed patellar instability. His knee cap frankly dislocates with flexion. The findings and options have been discussed. I see no indication that there is any excessive external rotation of the components. We plan on wound exploration and repairs as indicated. He states he understands the plan of care and wishes to proceed. DESCRIPTION OF PROCEDURE: The patient was brought to the operating room. He received prophylactic antibiotics in the holding area. He was placed under general anesthetic, and his left lower extremity was prepped and draped in a sterile manner. A preoperative time out was performed. Extremity was exsanguinated, and a proximal tourniquet was inflated to 300 mmHg. A portion of the anterior incision was opened. There was no evidence that the medial repair had failed. There was some laxity of the tissue. A medial parapatellar arthrotomy was performed. Clear synovial fluid was noted to be in the joint. Previous inflammatory workup was normal. The Ethibond stitches from the previous surgery were carefully removed. A lateral retinacular release was carefully performed. The synovial lining was preserved. A temporary stitch was placed to determine the extent to which I could advance the vastus medialis obliquus. The knee was brought up into flexion. Once it was determined the appropriate tension to improve patellar tracking, a bioabsorbable Arthrex suture anchor was placed in the medial aspect of the patella. The FiberWire stitches were passed through the medial retinaculum. A triple-row repair of the extensor mechanism was then performed. The knee was put through flexion and extension on a number of occasions. There was no recurrent patellar subluxation or dislocation. The quadriceps repair was not under excessive tension. The wound was irrigated. The skin was closed with subcuticular Vicryl and luis eduardo. A sterile bandage and a knee immobilizer were applied. The patient was transported to the recovery room in stable condition. Job#: [id number]
[2018-01-18] MEDS: ACETAMINOPHEN 1000 MG/100 ML IV SCH ×2 (12:13→18:06)
[2018-01-18] MEDS ORDERED: CEFAZOLIN SOD 1 GM/NS 50ML 50 ML IV SCH (14:00)
[2018-01-18] MEDS: CEFAZOLIN SOD 1 GM VIAL IV SCH (16:08)
[2018-01-18] MEDS: ASPIRIN 325 MG TAB PO SCH (16:21)
[2018-01-18] MEDS ORDERED: PROPOFOL IV EMULSION 10 MG/ML 20 ML VIAL ONE (17:24)
[2018-01-18] MEDS ORDERED: KETOROLAC TROMETHAMINE 30 MG/ML VIAL ONE (17:24)
[2018-01-18] MEDS ORDERED: LIDOCAINE HCL 2% LOCAL INJ 5 ML SDV VIAL INJ ONE (17:24)
[2018-01-18] MEDS ORDERED: ONDANSETRON HCL INJ 2 MG/ML VIAL ONE (17:24)
[2018-01-18] MEDS ORDERED: DEXAMETHASONE SOD PHOS INJ 4 MG/ML VIAL ONE (17:24)
[2018-01-18] MEDS ORDERED: SEVOFLURANE INHAL SOLN 250 ML PEN BTL ONE (17:24)
[2018-01-18] MEDS ORDERED: PHENYLEPHRINE HCL 1% 10 MG/ML VIAL ONE (17:24)
[2018-01-18] MEDS ORDERED: FENTANYL CITRATE/PF 100MCG/2 ML INJ ONE (17:29)
[2018-01-18] MEDS ORDERED: MIDAZOLAM HCL 2 MG/2 ML VIAL ONE (17:29)
[2018-01-18] MEDS ORDERED: ZOLPIDEM TARTRATE 5 MG TAB PO PRN (21:00)
--- NOTE | 2018-01-18 23:42 | Consultation ---
DATE OF CONSULTATION: January 18, 2018 A 67-year-old male comes in status post knee surgery. The patient had surgery with Dr. Monique this morning. We have been consulted for medical management. The patient had a lateral release and medial retinacular repair and the patient is in an immobilizer right now. PAST MEDICAL HISTORY: History of essential hypertension, history of osteoarthritis, history of chronic gout, history of polyneuropathy, history of chronic kidney disease stage 3, and history of osteoarthritis. MEDICINES 1. Folic acid 1 mg 2. Lasix 40 mg daily. 3. Colchicine 0.6 mg daily. 4. Levothyroxine for hypothyroidism 50 mcg daily. 5. ProAir 2 puffs as needed. 6. Lisinopril 2.5 mg. 7. Bystolic 10 mg. 8. Allopurinol 300 mg. MEDICAL HISTORY: Also includes deep vein thrombosis and hypothyroidism. SURGICAL HISTORY: History of appendectomy, cholecystectomy, and also left knee surgery recently. FAMILY HISTORY: Father is . Mother is . Nonsmoker. No EtOH, no IV drug use either. ALLERGIES: NO KNOWN DRUG ALLERGIES. IMMUNIZATIONS: Up-to-date including pneumococcal vaccine. EXAMINATION VITALS: Stable blood pressure. HEENT: Normocephalic, atraumatic. Pupils react to light and accommodation. CARDIOVASCULAR: S1, S2 normal. Regular rate and rhythm. ABDOMEN: Nontender, nondistended. EXTREMITIES: Left knee in an immobilizer. No edema, no bleeding. ASSESSMENT: Status post release and medial retinacular repair of the knee. Patient will be in immobilizer, has been warned about this, but will try to prevent deep venous thrombosis. Will also get DVT prophylaxis. Restart on his current medication. Prednisone will be started for a couple of days, and also, complete blood count will be monitored. For blood pressure, restart back on his Bystolic. Further recommendations per clinical course. The patient's hemoglobin and hematocrit will be repeated tomorrow. If needed, blood transfusion will be done and also, an iron panel will be done. Sed rates will be done too. Further recommendation per clinical course. Thank you for the consult. Job#: [id number] CQ
[2018-01-19] VITALS: BP 115/62
[2018-01-19 04:00] VITALS: BP 136/68
[2018-01-19] MEDS: SODIUM CHLORIDE 0.9% 1000ML 1,000 ML IV SCH (05:19)
[2018-01-19] MEDS: ACETAMINOPHEN 1000 MG/100 ML IV SCH ×2 (05:34)
[2018-01-19 07:22] LABS: BASOPHILS % 0.1 % (0.0-1.0); HEMATOCRIT 30.4 % (38.2-49.6); HEMOGLOBIN 10.2 g/dL (14.0-18.0); MEAN CORPUSCULAR HEMOGLOBIN 30.6 pg (28-32); MEAN CORPUSCULAR HGB CONC 33.6 g/dL (31-35); MEAN CORPUSCULAR VOLUME 91.3 fL (81-99); MONOCYTES # (AUTO) 0.4 (0.2-0.8); MONOCYTES % 4.1 % (4.4-11.3); NEUTROPHILS # (AUTO) 9.3 (2.1-6.9); NEUTROPHILS % 86.2 % (38.7-80.0); PLATELET COUNT 199 x10e3/uL (140-360); RED BLOOD COUNT 3.33 x10e6/uL (4.3-5.7); RED CELL DISTRIBUTION WIDTH 14.9 % (11.7-14.4)
[2018-01-19 07:36] LABS: ALBUMIN 3.5 g/dL (3.5-5.0); ALBUMIN/GLOBULIN RATIO 1.4 (0.8-2.0); ANION GAP 15.6 mmol/L (8-16); CREATININE, SERUM 2.09 mg/dL (0.72-1.25); POTASSIUM 4.6 mmol/L (3.5-5.1)
[2018-01-19 07:55] VITALS: BP 129/65
[2018-01-19 08:00] VITALS: BP 129/65
[2018-01-19] MEDS: ASPIRIN 325 MG TAB PO SCH (08:45)
[2018-01-19] MEDS: CEFAZOLIN SOD 1 GM VIAL IV SCH ×2 (08:45)
[2018-01-19] MEDS ORDERED: PREDNISONE 10 MG TAB PO SCH (09:00)
[2018-01-19] MEDS ORDERED: NEBIVOLOL 10 MG TAB PO SCH (09:00)
[2018-01-19] MEDS ORDERED: LISINOPRIL 2.5 MG TAB PO SCH (09:00)
[2018-01-19] MEDS ORDERED: COLCHICINE 0.6 MG TAB PO SCH (09:00)
[2018-01-19] MEDS ORDERED: ALLOPURINOL 300 MG TAB PO SCH (09:00)
[2018-01-19] MEDS ORDERED: ACETAMINOPHEN 1000 MG/100 ML IV PRN (09:30)
[2018-01-19 12:00] VITALS: BP 143/67
[2018-01-19] MEDS ORDERED: doxy (12:43)
[2018-01-19] MEDS ORDERED: DOXYCYCLINE HY100 MG PO (12:44)
[2018-01-19] MEDS ORDERED: NORCO 7.5-3251 EACH PO (12:44)
== END 2018-01-19 14:53 | disposition home health service (06) | DRG 502 ==
LOC: OR 06:06 → PACU V 10:05 → OBSVTOIN 10:05 → MED/SURG 10:44
PROVIDERS: ADMIT Specialist; ATTEND Specialist
PROC: 0KXR0ZZ Transfer Left Upper Leg Muscle, Open Approach (ICD-10-PCS; 2018-01-18)
PROC: 0MNP0ZZ Release Left Knee Bursa and Ligament, Open Approach (ICD-10-PCS; principal; 2018-01-18 08:08)
DX: T84.023A Instability of internal left knee prosthesis, initial encounter (principal); M22.02 Recurrent dislocation of patella, left knee; M17.12 Unilateral primary osteoarthritis, left knee; I10 Essential (primary) hypertension
CPT/HCPCS: 36415; 80053; 85025; 86850; 86900; 86920; J0171; J0690; J1100; J1885; J2001; J2250; J2370; J2405; J2795; J7030

== ENCOUNTER → 2018-03-29 | Outpatient (CLI) | payer MEDICARE ==
[~2018-03-29] MED LIST changes: +DEXMEDETOMIDINE HCL 200 MCG/2 ML VIAL IV ONE; +FENTANYL CITRATE/PF 100MCG/2 ML INJ ONE; +KETAMINE HCL INJ 50 MG/ML 10 ML VIAL ONE; +LACTATED RINGER'S 1,000 ML ONE; +LORAZEPAM INJ 2 MG/ML VIAL ONE; +MIDAZOLAM HCL 2 MG/2 ML VIAL ONE; +NORCO 7.5-3251 EACH PO; +doxy
--- NOTE | 2018-03-30 07:11 | Diagnostic Imaging Report ---
EXAMINATION: MRI of the cervical spine without contrast HISTORY: Status post fall, neck pain, numbness in vertex extremities, cervical spinal stenoses, cervical spine surgery COMPARISON: Cervical spine MRI of 01/28/2017 TECHNIQUE: Sagittal T1, T2, STIR; axial T2, gradient echo. FINDINGS: Postoperative changes: Status post ACDF at C3-C4 with improvement of previously seen severe canal stenosis or compression. Curvature: Straightening of the cervical lordosis. Minimal anterolisthesis at C4-C5 and retrolisthesis at C5-C6. Vertebrae: No evidence of neoplasm, infection, or fracture. Chronic endplate degenerative changes at C4-C5 and C5-C6. Foramen magnum: No mass, Chiari malformation, or basilar invagination. Spinal Cord: Unchanged focal cervical spinal cord myelomalacia at the level of C3 with increased signal in the central/dorsal cord and associated focal atrophy. Soft Tissues: Unremarkable. Degenerative changes: C1-C2: Mild degenerative changes without stenoses C2-C3: Mild symmetric disc or, bilateral uncovertebral and facet arthrosis. Moderate right and severe left foraminal stenosis. C3-C4: Surgical level, severe bilateral foraminal stenoses. C4-C5: Disc osteophyte complex formation, bilateral uncovertebral and facet arthrosis. Mild canal and severe bilateral foraminal stenosis. C5-C6: Disc osteophyte complex formation, bilateral uncovertebral and facet arthrosis. Moderately severe spinal canal and severe bilateral foraminal stenosis. C6-C7: Disc osteophyte complex formation, bilateral uncovertebral and facet arthrosis. Moderately severe spinal canal stenosis. Mild right and severe left foraminal stenosis. C7-T1: Mild facet arthrosis without stenosis. IMPRESSION: 1. Status post ACDF at C3-C4 with improved previously seen canal stenosis and cord compression. 2. Stable cervical spinal cord myelomalacia at C4. 3. Severe degenerative bilateral foraminal stenoses at C3-C4 and C4-C5. 4. Moderately severe degenerative spinal canal and severe foraminal stenoses at C5-C6 and C6-C7 as detailed above. 5. Minimal retrolisthesis at C5-C6. Signed by: Dr. Ebony Clements M.D. on 03/30/2018 7:08 AM
== END ==
LOC: MRI 03-22 14:04
PROVIDERS: ATTEND Specialist
DX: M48.02 Spinal stenosis, cervical region (principal)
CPT/HCPCS: 72141; J2060; J2250; J7120

== ENCOUNTER 2022-12-05 16:02 | Inpatient (IN) | payer MEDICARE ==
[~2022-12-05] VITALS: Ht 175.3 cm; Wt 82.7 kg
[~2022-12-05 16:02] MED LIST changes: -DEXMEDETOMIDINE HCL 200 MCG/2 ML VIAL IV ONE; -FENTANYL CITRATE/PF 100MCG/2 ML INJ ONE; -KETAMINE HCL INJ 50 MG/ML 10 ML VIAL ONE; -LACTATED RINGER'S 1,000 ML ONE; -LORAZEPAM INJ 2 MG/ML VIAL ONE; -MIDAZOLAM HCL 2 MG/2 ML VIAL ONE
[2022-12-05 16:48] LABS: CLARITY,URINE CLEAR (CLEAR); COLOR,URINE YELLOW (YELLOW); LEUKOCYTE ESTERASE ,URINE TRACE (NEGATIVE); NITRITE,URINE NEGATIVE (NEGATIVE); PROTEIN,URINE DIPSTICK 1+ (NEGATIVE)
[2022-12-05 16:49] LABS: KETONES,URINE TRACE (NEGATIVE); URINE UROBILINOGEN 2 mg/dL (0.2 - 1)
[2022-12-05 17:00] LABS: BACTERIA,URINE RARE /HPF; EPITHELIAL CELLS,URINE FEW /LPF; RBC,URINE 0-5 /HPF (0-5); WBC,URINE (MAN) 0-5 /HPF (0-5)
[2022-12-05 17:46] LABS: BASOPHILS % 0.2 % (0.0-1.0); EOSINOPHILS % 0.3 % (0.0-6.0); HEMATOCRIT 37.3 % (38.2-49.6); HEMOGLOBIN 12.7 g/dL (14.0-18.0); LYMPHOCYTES # (AUTO) 1.6 (1.0-3.2); LYMPHOCYTES % 15.6 % (18.0-39.1); MEAN CORPUSCULAR HEMOGLOBIN 32.2 pg (28-32); MEAN CORPUSCULAR VOLUME 94.7 fL (81-99); MONOCYTES # (AUTO) 0.9 (0.2-0.8); MONOCYTES % 8.3 % (4.4-11.3); NEUTROPHILS # (AUTO) 7.8 (2.1-6.9); NEUTROPHILS % 74.6 % (38.7-80.0); PLATELET COUNT 141 x10e3/uL (140-360); RED BLOOD COUNT 3.94 x10e6/uL (4.3-5.7); RED CELL DISTRIBUTION WIDTH 13.2 % (11.7-14.4)
[2022-12-05 18:05] LABS: ALBUMIN 2.7 g/dL (3.5-5.0); ALBUMIN/GLOBULIN RATIO 0.6 (0.8-2.0); ANION GAP 19.6 mmol/L (8-16); CALCIUM 9.1 mg/dL (8.4-10.2); CREATININE, SERUM 1.26 mg/dL (0.72-1.25); POTASSIUM 3.6 mmol/L (3.5-5.1)
[2022-12-05] MEDS ORDERED: IOPAMIDOL 370 MG/ML 100 ML INFUS..BTL INJ ONE (18:17)
[2022-12-05] MEDS ORDERED: ACETAMINOPHEN 325 MG TAB PO ONE (19:15)
[2022-12-05] MEDS ORDERED: ACETAMINOPHEN 325 MG TAB PO STA (19:16)
[2022-12-05] MEDS ORDERED: ACETAMINOPHEN 325 MG TAB ONE (19:20)
[2022-12-05] MEDS ORDERED: ONDANSETRON HCL INJ 2MG/ML 2ML 2 MG/ML VIAL IV PRN (20:00)
[2022-12-05 20:25] VITALS: PULSE 80; RESP 20; O2SAT 96
[2022-12-05 23:00] VITALS: BP 140/89; PULSE 83; RESP 16; TEMP 97.3; O2SAT 96
[2022-12-06] VITALS (10 sets, daily range): BP systolic 119–140; BP diastolic 69–89; PULSE 71–93; RESP 16–20; TEMP 97.3–99.2; O2SAT 95–100
[2022-12-06] MEDS: SODIUM CHLORIDE 0.9% 1000ML 1,000 ML IV SCH ×4 (00:22→20:16)
[2022-12-06 06:27] LABS: BASOPHILS # (AUTO) 0.1 (0.0-0.1); BASOPHILS % 0.8 % (0.0-1.0); EOSINOPHILS % 0.5 % (0.0-6.0); HEMATOCRIT 31.5 % (38.2-49.6); HEMOGLOBIN 10.6 g/dL (14.0-18.0); LYMPHOCYTES # (AUTO) 0.8 (1.0-3.2); LYMPHOCYTES % 13.4 % (18.0-39.1); MEAN CORPUSCULAR HEMOGLOBIN 31.8 pg (28-32); MEAN CORPUSCULAR HGB CONC 33.7 g/dL (31-35); MEAN CORPUSCULAR VOLUME 94.6 fL (81-99); MONOCYTES # (AUTO) 0.5 (0.2-0.8); MONOCYTES % 8.1 % (4.4-11.3); NEUTROPHILS # (AUTO) 4.6 (2.1-6.9); NEUTROPHILS % 76.2 % (38.7-80.0); PLATELET COUNT 119 x10e3/uL (140-360); RED BLOOD COUNT 3.33 x10e6/uL (4.3-5.7); RED CELL DISTRIBUTION WIDTH 13.1 % (11.7-14.4)
[2022-12-06 06:53] LABS: ALBUMIN 2.2 g/dL (3.5-5.0); ALBUMIN/GLOBULIN RATIO 0.6 (0.8-2.0); ANION GAP 15.3 mmol/L (8-16); CALCIUM 8.2 mg/dL (8.4-10.2); CREATININE, SERUM 1.09 mg/dL (0.72-1.25); POTASSIUM 3.3 mmol/L (3.5-5.1)
[2022-12-06] MEDS: NEBIVOLOL 10 MG TAB PO SCH (09:39)
[2022-12-06] MEDS: Morphine 4mg INJECTION 4 MG/ML INJ IV PRN (20:17)
[2022-12-07] VITALS (7 sets, daily range): BP systolic 119–140; BP diastolic 73–82; PULSE 75–93; RESP 16–22; TEMP 97.9–100.2; O2SAT 94–100
[2022-12-07] MEDS: SODIUM CHLORIDE 0.9% 1000ML 1,000 ML IV SCH ×2 (05:16→11:53)
[2022-12-07] MEDS ORDERED: GADOBENATE DIMEGLUMINE 1 ML IV ONE ×2 (08:57→11:49)
[2022-12-07] MEDS: NEBIVOLOL 10 MG TAB PO SCH (09:08)
[2022-12-07] MEDS ORDERED: DIAZEPAM 5 MG TAB PO ONE (10:00)
[2022-12-07] MEDS ORDERED: HYDROMORPHONE 1MG/1ML INJ IV STA (11:31)
[2022-12-07] MEDS ORDERED: LORAZEPAM INJ 2 MG/ML VIAL IV ONE (11:45)
[2022-12-07] MEDS ORDERED: FUROSEMIDE INJ 10 MG/ML 2 ML VIAL IV ONE (18:50)
[2022-12-07] MEDS ORDERED: POTASSIUM CHLORIDE 10MEQ EA PO ONE (18:50)
[2022-12-08] VITALS (8 sets, daily range): BP systolic 112–155; BP diastolic 51–96; PULSE 70–88; RESP 17–20; TEMP 97.4–100.1; O2SAT 96–100
[2022-12-08 05:53] LABS: BASOPHILS % 0.4 % (0.0-1.0); EOSINOPHILS # (AUTO) 0.1 (0.0-0.4); EOSINOPHILS % 1.4 % (0.0-6.0); HEMATOCRIT 31.1 % (38.2-49.6); HEMOGLOBIN 10.1 g/dL (14.0-18.0); LYMPHOCYTES # (AUTO) 0.9 (1.0-3.2); LYMPHOCYTES % 16.8 % (18.0-39.1); MEAN CORPUSCULAR HEMOGLOBIN 31.9 pg (28-32); MEAN CORPUSCULAR HGB CONC 32.5 g/dL (31-35); MEAN CORPUSCULAR VOLUME 98.1 fL (81-99); MONOCYTES # (AUTO) 0.4 (0.2-0.8); MONOCYTES % 8.7 % (4.4-11.3); NEUTROPHILS # (AUTO) 3.6 (2.1-6.9); NEUTROPHILS % 71.7 % (38.7-80.0); PLATELET COUNT 128 x10e3/uL (140-360); RED BLOOD COUNT 3.17 x10e6/uL (4.3-5.7); RED CELL DISTRIBUTION WIDTH 13.4 % (11.7-14.4)
[2022-12-08 06:10] LABS: ALBUMIN 1.9 g/dL (3.5-5.0); ALBUMIN/GLOBULIN RATIO 0.6 (0.8-2.0); ANION GAP 13.3 mmol/L (8-16); CALCIUM 7.9 mg/dL (8.4-10.2); CREATININE, SERUM 0.96 mg/dL (0.72-1.25); POTASSIUM 3.3 mmol/L (3.5-5.1)
[2022-12-08] MEDS: NEBIVOLOL 10 MG TAB PO SCH (08:34)
[2022-12-08] MEDS: Morphine 4mg INJECTION 4 MG/ML INJ IV PRN (09:30)
[2022-12-08 13:46] LABS: INR 0.99; PROTHROMBIN TIME 13.6 seconds (11.9-14.5)
[2022-12-08] MEDS: Vancomycin IV 1 GM in SODIUM CHLORIDE 0.9% 250ML 250 ML IV SCH (17:13)
[2022-12-08] MEDS: METOPROLOL TARTRATE 25 MG TAB PO SCH (17:14)
[2022-12-08] MEDS: ACETAMINOPHEN 325 MG TAB PO PRN (17:14)
[2022-12-08] MEDS ORDERED: POTASSIUM CHLORIDE 20 MEQ TAB CR PO ONE (19:25)
[2022-12-09] VITALS (7 sets, daily range): BP systolic 125–152; BP diastolic 50–89; PULSE 64–86; RESP 16–20; TEMP 99.1–100.7; O2SAT 95–100
[2022-12-09 05:01] LABS: BASOPHILS % 0.7 % (0.0-1.0); EOSINOPHILS # (AUTO) 0.1 (0.0-0.4); EOSINOPHILS % 1.6 % (0.0-6.0); HEMATOCRIT 30.3 % (38.2-49.6); HEMOGLOBIN 9.8 g/dL (14.0-18.0); MEAN CORPUSCULAR HEMOGLOBIN 31.9 pg (28-32); MEAN CORPUSCULAR HGB CONC 32.3 g/dL (31-35); MEAN CORPUSCULAR VOLUME 98.7 fL (81-99); MONOCYTES # (AUTO) 0.4 (0.2-0.8); PLATELET COUNT 147 x10e3/uL (140-360); RED BLOOD COUNT 3.07 x10e6/uL (4.3-5.7); RED CELL DISTRIBUTION WIDTH 13.4 % (11.7-14.4)
[2022-12-09 05:17] LABS: ALBUMIN 1.9 g/dL (3.5-5.0); ALBUMIN/GLOBULIN RATIO 0.6 (0.8-2.0); ANION GAP 11.8 mmol/L (8-16); CREATININE, SERUM 0.94 mg/dL (0.72-1.25); POTASSIUM 3.8 mmol/L (3.5-5.1)
[2022-12-09] MEDS: ACETAMINOPHEN 325 MG TAB PO PRN (06:36)
[2022-12-09] MEDS ORDERED: FENTANYL CITRATE/PF 100MCG/2 ML INJ ONE (08:43)
[2022-12-09] MEDS ORDERED: SODIUM CHLORIDE 0.9% 250ML 250 ML ONE (08:43)
[2022-12-09] MEDS ORDERED: MIDAZOLAM HCL 2 MG/2 ML VIAL ONE (08:43)
[2022-12-09] MEDS ORDERED: LIDOCAINE HCL 1% LOCAL INJ 20 ML VIAL ONE (08:55)
[2022-12-09] MEDS: METOPROLOL TARTRATE 25 MG TAB PO SCH ×2 (10:03→17:23)
[2022-12-09] MEDS: Vancomycin IV 1 GM in SODIUM CHLORIDE 0.9% 250ML 250 ML IV SCH (10:03)
[2022-12-09] MEDS: MUPIROCIN 2% OINT 22 GM TUBE TOP SCH (15:00)
[2022-12-09] MEDS: Morphine 4mg INJECTION 4 MG/ML INJ IV PRN (23:54)
[2022-12-10] VITALS (8 sets, daily range): BP systolic 97–156; BP diastolic 51–96; PULSE 67–90; RESP 16–21; TEMP 97–98.8; O2SAT 96–100
[2022-12-10] MEDS: METOPROLOL TARTRATE 25 MG TAB PO SCH ×2 (08:53→16:30)
[2022-12-10] MEDS: MUPIROCIN 2% OINT 22 GM TUBE TOP SCH (08:57)
[2022-12-10] MEDS: Vancomycin IV 1 GM in SODIUM CHLORIDE 0.9% 250ML 250 ML IV SCH (09:55)
[2022-12-10] MEDS: Morphine 4mg INJECTION 4 MG/ML INJ IV PRN (19:48)
[2022-12-10] MEDS ORDERED: SODIUM CHLORIDE 0.9% 250ML 250 ML ONE (23:47)
[2022-12-11] VITALS (7 sets, daily range): BP systolic 122–157; BP diastolic 71–83; PULSE 69–90; RESP 16–20; TEMP 97.9–98.7; O2SAT 97–99
[2022-12-11 05:48] LABS: BASOPHILS % 0.7 % (0.0-1.0); EOSINOPHILS # (AUTO) 0.1 (0.0-0.4); EOSINOPHILS % 1.7 % (0.0-6.0); HEMATOCRIT 30.3 % (38.2-49.6); HEMOGLOBIN 9.7 g/dL (14.0-18.0); LYMPHOCYTES # (AUTO) 1.1 (1.0-3.2); LYMPHOCYTES % 26.3 % (18.0-39.1); MEAN CORPUSCULAR HEMOGLOBIN 31.7 pg (28-32); MONOCYTES # (AUTO) 0.4 (0.2-0.8); MONOCYTES % 8.9 % (4.4-11.3); NEUTROPHILS # (AUTO) 2.5 (2.1-6.9); NEUTROPHILS % 61.7 % (38.7-80.0); PLATELET COUNT 154 x10e3/uL (140-360); RED BLOOD COUNT 3.06 x10e6/uL (4.3-5.7); RED CELL DISTRIBUTION WIDTH 13.7 % (11.7-14.4)
[2022-12-11 06:07] LABS: ALBUMIN 1.9 g/dL (3.5-5.0); ALBUMIN/GLOBULIN RATIO 0.6 (0.8-2.0); ANION GAP 10.5 mmol/L (8-16); CALCIUM 7.7 mg/dL (8.4-10.2); CREATININE, SERUM 0.95 mg/dL (0.72-1.25); POTASSIUM 3.5 mmol/L (3.5-5.1)
[2022-12-11] MEDS: METOPROLOL TARTRATE 25 MG TAB PO SCH ×2 (10:11→17:00)
[2022-12-11] MEDS: Morphine 4mg INJECTION 4 MG/ML INJ IV PRN ×2 (10:19→19:30)
[2022-12-11] MEDS: MUPIROCIN 2% OINT 22 GM TUBE TOP SCH (16:59)
[2022-12-11] MEDS: MEROPENEM 1 GM in SODIUM CHLORIDE 0.9% 100 ML IV SCH (22:58)
[2022-12-12 00:27] VITALS: BP_SYST 148; BP_SYST 179; BP_DIAS 69; BP_DIAS 86; PULSE 67; PULSE 79; RESP 17; RESP 19; TEMP 98.1; TEMP 98.5; O2SAT 96; O2SAT 98
[2022-12-12 04:52] VITALS: BP 139/62; PULSE 69; RESP 19; TEMP 98.1; O2SAT 99
[2022-12-12] MEDS: MEROPENEM 1 GM in SODIUM CHLORIDE 0.9% 100 ML IV SCH ×3 (05:30→21:01)
[2022-12-12 08:00] VITALS: BP 135/89; PULSE 80; RESP 20; TEMP 97.6; O2SAT 98
[2022-12-12 08:20] LABS: BASOPHILS % 0.6 % (0.0-1.0); EOSINOPHILS # (AUTO) 0.1 (0.0-0.4); EOSINOPHILS % 1.8 % (0.0-6.0); HEMATOCRIT 31.8 % (38.2-49.6); HEMOGLOBIN 10.3 g/dL (14.0-18.0); LYMPHOCYTES # (AUTO) 1.4 (1.0-3.2); LYMPHOCYTES % 27.8 % (18.0-39.1); MEAN CORPUSCULAR HEMOGLOBIN 32.1 pg (28-32); MEAN CORPUSCULAR HGB CONC 32.4 g/dL (31-35); MEAN CORPUSCULAR VOLUME 99.1 fL (81-99); MONOCYTES # (AUTO) 0.4 (0.2-0.8); MONOCYTES % 8.8 % (4.4-11.3); PLATELET COUNT 185 x10e3/uL (140-360); RED BLOOD COUNT 3.21 x10e6/uL (4.3-5.7); RED CELL DISTRIBUTION WIDTH 13.4 % (11.7-14.4)
[2022-12-12 08:50] LABS: ALBUMIN 2.1 g/dL (3.5-5.0); ALBUMIN/GLOBULIN RATIO 0.6 (0.8-2.0); ANION GAP 12.6 mmol/L (8-16); CALCIUM 8.3 mg/dL (8.4-10.2); CREATININE, SERUM 0.86 mg/dL (0.72-1.25); POTASSIUM 3.6 mmol/L (3.5-5.1)
[2022-12-12] MEDS: MUPIROCIN 2% OINT 22 GM TUBE TOP SCH (09:09)
[2022-12-12] MEDS: METOPROLOL TARTRATE 25 MG TAB PO SCH ×2 (09:10→17:32)
[2022-12-12 15:55] VITALS: BP 130/95; PULSE 89; RESP 19; TEMP 98.2; O2SAT 99
[2022-12-12 20:00] VITALS: BP 149/88; PULSE 74; RESP 19; TEMP 98.9; O2SAT 97
[2022-12-12 20:46] VITALS: BP 149/88; PULSE 74; RESP 20; TEMP 98.9; O2SAT 97
[2022-12-12] MEDS: ACETAMINOPHEN 325 MG TAB PO PRN (21:10)
[2022-12-13] VITALS (7 sets, daily range): BP systolic 139–165; BP diastolic 74–89; PULSE 75–97; RESP 18–22; TEMP 98–98.5; O2SAT 98–100
[2022-12-13] MEDS: MEROPENEM 1 GM in SODIUM CHLORIDE 0.9% 100 ML IV SCH ×3 (05:15→21:14)
[2022-12-13] MEDS: MUPIROCIN 2% OINT 22 GM TUBE TOP SCH (09:33)
[2022-12-13] MEDS: METOPROLOL TARTRATE 25 MG TAB PO SCH ×2 (09:35→17:44)
[2022-12-14] VITALS (8 sets, daily range): BP systolic 125–150; BP diastolic 69–78; PULSE 53–85; RESP 20; TEMP 98.2–99; O2SAT 96–100
[2022-12-14] MEDS: MEROPENEM 1 GM in SODIUM CHLORIDE 0.9% 100 ML IV SCH ×3 (05:33→22:19)
[2022-12-14] MEDS: METOPROLOL TARTRATE 25 MG TAB PO SCH ×2 (08:33→16:47)
[2022-12-14] MEDS: AMLODIPINE BESYLATE 5 MG TAB PO SCH (08:34)
[2022-12-14] MEDS ORDERED: ONDANSETRON HCL 4 MG ORAL DISINTEGRATING TAB PO PRN (14:15)
[2022-12-14] MEDS: MUPIROCIN 2% OINT 22 GM TUBE TOP SCH (15:16)
[2022-12-15] VITALS (8 sets, daily range): BP systolic 112–142; BP diastolic 68–94; PULSE 73–99; RESP 17–21; TEMP 97.5–98.6; O2SAT 97–99
[2022-12-15] MEDS: MEROPENEM 1 GM in SODIUM CHLORIDE 0.9% 100 ML IV SCH ×3 (05:10→22:11)
[2022-12-15] MEDS: METOPROLOL TARTRATE 25 MG TAB PO SCH ×2 (08:45→16:22)
[2022-12-15] MEDS: AMLODIPINE BESYLATE 5 MG TAB PO SCH (08:45)
[2022-12-15] MEDS: MUPIROCIN 2% OINT 22 GM TUBE TOP SCH (10:07)
[2022-12-15] MEDS ORDERED: SODIUM CHLORIDE 0.9% 250ML 250 ML ONE (22:10)
[2022-12-16 01:30] VITALS: BP 152/81; PULSE 85; RESP 16; TEMP 98; O2SAT 98
[2022-12-16 05:09] VITALS: BP 134/86; PULSE 103; RESP 18; TEMP 97.3; O2SAT 99
[2022-12-16] MEDS: MEROPENEM 1 GM in SODIUM CHLORIDE 0.9% 100 ML IV SCH ×2 (05:17→15:45)
[2022-12-16 05:38] LABS: BASOPHILS % 0.3 % (0.0-1.0); EOSINOPHILS # (AUTO) 0.1 (0.0-0.4); EOSINOPHILS % 1.5 % (0.0-6.0); HEMATOCRIT 31.1 % (38.2-49.6); HEMOGLOBIN 10.2 g/dL (14.0-18.0); LYMPHOCYTES # (AUTO) 1.9 (1.0-3.2); LYMPHOCYTES % 32.5 % (18.0-39.1); MEAN CORPUSCULAR HEMOGLOBIN 31.6 pg (28-32); MEAN CORPUSCULAR HGB CONC 32.8 g/dL (31-35); MEAN CORPUSCULAR VOLUME 96.3 fL (81-99); MONOCYTES # (AUTO) 0.6 (0.2-0.8); MONOCYTES % 10.2 % (4.4-11.3); NEUTROPHILS # (AUTO) 3.2 (2.1-6.9); NEUTROPHILS % 54.3 % (38.7-80.0); PLATELET COUNT 184 x10e3/uL (140-360); RED BLOOD COUNT 3.23 x10e6/uL (4.3-5.7); RED CELL DISTRIBUTION WIDTH 13.7 % (11.7-14.4)
[2022-12-16 06:01] LABS: ANION GAP 8.8 mmol/L (8-16); CALCIUM 8.2 mg/dL (8.4-10.2); CREATININE, SERUM 0.85 mg/dL (0.72-1.25); POTASSIUM 3.8 mmol/L (3.5-5.1)
[2022-12-16 08:33] VITALS: BP 141/76; PULSE 88; RESP 20; TEMP 98; O2SAT 100
[2022-12-16 09:35] VITALS: BP 141/76; PULSE 88; RESP 20; TEMP 98; O2SAT 100
[2022-12-16] MEDS: METOPROLOL TARTRATE 25 MG TAB PO SCH (09:41)
[2022-12-16] MEDS: AMLODIPINE BESYLATE 5 MG TAB PO SCH (09:41)
[2022-12-16] MEDS: MUPIROCIN 2% OINT 22 GM TUBE TOP SCH (09:56)
[2022-12-16 12:46] VITALS: BP 122/71; PULSE 93; RESP 19; TEMP 98.4; O2SAT 99
== END 2022-12-16 16:17 | DRG 372 ==
LOC: ER 16:09 → ERHOLD 19:48 → MED/SURG3 22:45
PROVIDERS: ADMIT Family Medicine; ATTEND Family Medicine
PROC: 0W9G30Z Drainage of Peritoneal Cavity with Drainage Device, Percutaneous Approach (ICD-10-PCS; 2022-12-09)
PROC: 02HV33Z Insertion of Infusion Device into Superior Vena Cava, Percutaneous Approach (ICD-10-PCS; principal; 2022-12-15)
DX: K65.1 Peritoneal abscess (principal); D84.9 Immunodeficiency, unspecified; L03.115 Cellulitis of right lower limb; L03.116 Cellulitis of left lower limb; M48.54XA Collapsed vertebra, not elsewhere classified, thoracic region, initial encounter for fracture; I10 Essential (primary) hypertension; M10.9 Gout, unspecified; L40.50 Arthropathic psoriasis, unspecified; D64.9 Anemia, unspecified; E77.8 Other disorders of glycoprotein metabolism; E88.09 Other disorders of plasma-protein metabolism, not elsewhere classified; M19.90 Unspecified osteoarthritis, unspecified site; M06.9 Rheumatoid arthritis, unspecified; B96.89 Other specified bacterial agents as the cause of diseases classified elsewhere; Z20.822 Contact with and (suspected) exposure to COVID-19; Z96.652 Presence of left artificial knee joint
CPT/HCPCS: 36415; 36569; 49406; 71045; 74177; 74470; 77012; 80048; 80053; 80202; 81001; 82948; 83690; 85025; 85610; 87071; 87075; 87186; 87205; 92523; 93005; 93306; 94799; 99152; 99153; 99252; 99284; C1729; C1769; J1170; J1940; J2001; J2060; J2185; J2250; J2270; J2405; J2543; J7030; J7050; Q9967